=== PATIENT | female | born 1990 | race African-American/Black ===

== ENCOUNTER 2017-01-03 23:42 | Emergency (ER) | payer OTHER ==
[~2017-01-03] VITALS: Ht 167.6 cm; Wt 97.5 kg
[2017-01-03 23:58] VITALS: BP 119/74
--- NOTE | 2017-01-04 00:22 | ED THROAT/DENTAL COMPLAINT ---
History of Present Illness General Chief Complaint: Sore Throat, Dental Pain Stated Complaint: DENTAL PAIN Source: patient Exam Limitations: no limitations Vital Signs & Intake/Output Vital Signs & Intake/Output Vital Signs Date Time Temp Pulse Resp B/P Pulse O2 O2 Flow FiO2 Ox Delivery Rate 01/03 2358 98.0 84 18 119/74 97 Room Air ED Intake and Output 01/04 0000 01/03 1200 Intake Total Output Total Balance Patient 215 lb Weight Allergies Coded Allergies: NO KNOWN ALLERGIES (12/23/11) Reconcile Medications Tramadol HCl 50 MG TABLET 1 TAB PO BIDP PRN PAIN Triage Note: PT TO ED C/O "BAD TOOTH ACHE", PT STATES SHES BEEN TAKING IBUPROFEN/ADVIL X2 DAYS. PT WAS AT DENTIST AT BEGINNING OF WEEK, PT HAS HX OF ROOT CANAL AT SAME TOOTH AND "THERES NO CAP ON IT" Triage Nurses Notes Reviewed? yes : No Patient currently breastfeeds: Yes HPI: This patient is a 26-year-old female who presented to the emergency department today for evaluation of dental pain. The patient reported the pain has been going on for the last week intermittently. She reported that she saw her dentist on Friday, but was not having pain at that time. She has been taking ibuprofen with only minimal relief of her symptoms. She reported that the specific tooth that is bothering her recently had a root canal but reported, "there is no On it." She denied any fevers, chills, difficulty swallowing, sore throat, chest pain, or difficulty breathing. Past History Travel History Traveled to [place] past 21 day No Medical History Any Pertinent Medical History? see below for history Respiratory: asthma Surgical History Surgical History: non-contributory Psychosocial History What is your primary language Persian Tobacco Use: Never used Family History Hx Contributory? No Review of Systems Review of Systems Constitutional: Reports: no symptoms. EENTM: Reports: see HPI. Respiratory: Reports: no symptoms. Cardiovascular: Reports: no symptoms. GI: Reports: no symptoms. Musculoskeletal: Reports: no symptoms. Skin: Reports: no symptoms. Neurological/Psychological: Reports: no symptoms. All Other Systems: Reviewed and Negative Physical Exam Physical Exam Mouth/Throat: NO PHARYNGEAL INJECTION. nO ORAL PHARYNGEAL LESIONS OR EDEMA. nO MANDIBULAR OR MAXILLARY EDEMA. nO TRISMUS OR DROOLING. nO GINGIVAL ERYTHEMA OR HYPERPLASIA. tENDERNESS TO PALPATION OVER THE LEFT UPPER DENTITION Comments: Well-developed well-nourished person in no acute distress HEENT: Head normocephalic, moist mucous membranes Neck: Supple, no lymphadenopathy Back: Normal gait Respiratory: No respiratory distress. Speaking in full sentences Extremities: No edema, full range of motion Neuro: Alert and oriented x3 Psych: Mood affect normal, normal memory normal judgment. Skin: Warm and dry, no rash on exposed skin Core Measures ACS in differential dx? No Severe Sepsis Present: No Septic Shock Present: No Progress Differential Diagnosis: carious tooth, epiglottitis, Ludwigs angina, odontogenic abscess, angeles-tonsillar abscess, pharyngeal for. body, stomatitis/gingivitis, strep pharyngitis, tooth fracture Plan of Care: This patient is a 26-year-old female who presented to the emergency department today for evaluation of dental pain. History of prior root canal. No evidence of infection or abscess formation. Counseled this patient on the importance of following up with her dentist. She is stable for discharge home with symptomatic management. Departure Departure Disposition: HOME OR SELF CARE Condition: Stable Clinical Impression Primary Impression: Toothache Referrals: SHAHANA WELLS,SHAWN Singh (PCP/Family) Additional Instructions: Take medication as prescribed for pain. Please follow-up with your dentist. Return for any worsening symptoms or concerns. Departure Forms: Customer Survey General Discharge Information Prescriptions: Current Visit Scripts Tramadol HCl 1 TAB PO BIDP PRN PAIN #8 TAB
[2017-01-04] MEDS ORDERED: TRAMADOL HCL50 M1 PO (00:23)
== END 2017-01-04 00:29 ==
LOC: ERH 23:42
DX: K08.89 Other specified disorders of teeth and supporting structures (principal)

== ENCOUNTER 2018-02-01 10:42 | Emergency (ER) | payer OTHER ==
[~2018-02-01] VITALS: Ht 167.6 cm; Wt 97.5 kg
[~2018-02-01 10:42] MED LIST: TRAMADOL HCL50 M1 PO
--- NOTE | 2018-02-01 12:17 | ED HAND/WRIST INJURY COMPLAINT ---
History of Present Illness General Chief Complaint: Upper Extremity Injury Stated Complaint: S/P FALL YESTERDAY SHOULDER PAIN Source: patient Exam Limitations: no limitations Vital Signs & Intake/Output Vital Signs & Intake/Output Vital Signs Date Time Temp Pulse Resp B/P B/P Pulse O2 O2 Flow FiO2 Mean Ox Delivery Rate 02/01 1320 97.1 97 15 130/74 99 Room Air Room Air 02/01 1124 Room Air Room Air 02/01 1051 97.9 106 15 163/92 97 Room Air Room Air Allergies Coded Allergies: No Known Allergies (02/01/18) Reconcile Medications Hydrocodone/Acetaminophen ([place] 5-325 Tablet) 5 MG-325 MG TABLET 1-2 TAB PO Q4-6 PRN PRN PAIN Ibuprofen 800 MG TABLET 1 TAB PO TID PRN pain Tramadol HCl 50 MG TABLET 1 TAB PO BIDP PRN PAIN Triage Note: PT TO ED FOR L WRIST PAIN THAT RADIATES INTO L UPPER ARM S/P FELL WHILE ROLLER SKATING YESTERDAY. SOME SLIGHT SWELLING AND TENDERNESS TO L WRIST AREA. +CMS. MEDICATED WITH MOTRIN IN TRIAGE. Triage Nurses Notes Reviewed? yes Occurred: just prior to arrival Duration: day(s): (1), constant, continues in ED, getting worse Timing: single episode today Injury Environment: park Severity: moderate, severe Severity Numbers: 8 Pain/Injury Location: Left: Wrist. Context: fall Method of Injury: fall No Modifying Factors: none Associated Symptoms: swelling LMP (ages 10-50): unknown : No Patient currently breastfeeds: No HPI: 27-year-old female past medical history of asthma presents for evaluation of her fall. Patient states she was roller skating yesterday when she fell landing on her left wrist. There is no head strike or loss of consciousness she was able to get up without difficulty. She states that she has pain in the radial aspect of the wrist it is worse with movement. The pain radiates into her left shoulder the pain is worse with movement. No neck pain back pain chest pain or abdominal pain no numbness or tingling. She's not taking any medicine for this pain she rates as an 8 or 9 out of 10. (Milton Aranda) Past History Travel History Traveled to [place] past 21 day No Medical History Any Pertinent Medical History? see below for history Neurological: NONE EENT: NONE Cardiovascular: NONE Respiratory: asthma Gastrointestinal: NONE Hepatic: NONE Renal: NONE Musculoskeletal: NONE Psychiatric: NONE Endocrine: NONE Blood Disorders: NONE Cancer(s): NONE ANNEALER/Reproductive: NONE Surgical History Surgical History: non-contributory Psychosocial History What is your primary language [place] Tobacco Use: Quit >30 days ago ETOH Use: denies use Illicit Drug Use: denies illicit drug use Family History Hx Contributory? No (Milton Aranda) Review of Systems Review of Systems Constitutional: Reports: no symptoms. EENTM: Reports: no symptoms. Respiratory: Reports: no symptoms. Cardiovascular: Reports: no symptoms. GI: Reports: no symptoms. Genitourinary: Reports: no symptoms. Musculoskeletal: Reports: see HPI, joint pain, joint swelling, muscle pain, muscle stiffness. Skin: Reports: no symptoms. Neurological/Psychological: Reports: no symptoms. Hematologic/Endocrine: Reports: no symptoms. Immunologic/Allergic: Reports: no symptoms. All Other Systems: Reviewed and Negative (Milton Aranda) Physical Exam Physical Exam General Appearance: well developed/nourished, no apparent distress, alert, awake Head: atraumatic, normal appearance Eyes: Bilateral: normal appearance, EOMI. Ears, Nose, Throat: hearing grossly normal Neck: normal inspection, supple, full range of motion, no midline tenderness Cardiovascular/Respiratory: normal breath sounds, normal peripheral pulses, regular rate/rhythm, no respiratory distress Back: normal inspection, normal range of motion, no vertebral tenderness Shoulder Left: normal range of motion, normal inspection Shoulder Right: normal range of motion, normal inspection Elbow Left: normal range of motion, normal inspection Elbow Right: normal range of motion, normal inspection Forearm Left: normal inspection, limited range of motion Forearm Right: normal range of motion, normal inspection Wrist Left: swelling, tenderness, pain, soft tissue tenderness, limited range of motion, there is tenderness to palpation in the area of the radial wrist. There is tenderness in the snuffbox. There is mild soft tissue swelling on the radial aspect of the wrist. No gross deformity range of motion of the wrist is reduced due to pain. Wrist Right: normal range of motion, normal inspection Hand Left: normal inspection, limited range of motion, evidence of injury, swelling, tender, 1st finger, there is pain with range of motion of the thumb. Tenderness to palpation at the base of the thumb. Neurovascular supply is intact, cap Refill less than 2 seconds Hand Right: normal inspection, normal range of motion Neurologic/Tendon: normal sensation, normal motor functions, normal tendon functions, responds to pain, no evidence tendon injury, no pulse deficit Skin: intact, normal color, warm/dry Lymphatic: no anterior cervical joana (Milton Aranda) Progress Differential Diagnosis: abscess, cellulitis, contusion, dislocation, fracture, septic arthritis, sprain, tenosynovitis Plan of Care: Orders Procedure Date/time Status URINE 02/01 1056 Complete Laboratory Tests 02/01/18 1122: Urine Test NEGATIVE Patient seen and evaluated. She has tenderness and swelling to the radial aspect of the left wrist and snuffbox tenderness. X-rays were obtained which showed a nondisplaced transverse fracture of the distal radius. Neurovascular supply is intact. No other injuries. Full range motion of the elbow and shoulder no tenderness at the cervical spineor clavicle. Patient was placed into a left thumb spica splint. Neurovascular supply is intact follow-up with orthopedics. Rest ice elevation compression. Tylenol ibuprofen and [place] for pain discussed return precautions follow-up with Octavio Goff this week return with any concerns patient agrees. Diagnostic Imaging: Viewed by Me: Radiology Read. Discussed w/RAD: Radiology Read. Radiology Impression: PATIENT: TIKI FLETCHER PRESENT AGE: 27 PATIENT ACCOUNT NO: [id number] : 88 LOCATION: [facility] ORDERING PHYSICIAN: María POPE SERVICE DATE: 02/01/18-1116 EXAM TYPE: RAD - XRY-WRIST COMPLETE-LEFT EXAMINATION: XR WRIST, LEFT CLINICAL INFORMATION: Trauma COMPARISON: None TECHNIQUE: Four views of the left wrist. FINDINGS: The patient has incurred a nondisplaced transverse fracture of the metadiaphysis distal left radius. The ulna is intact. There is no apparent intra -articular extension. There is deep soft tissue swelling. No dislocation. IMPRESSION: Nondisplaced transverse fracture distal left radius. DICTATED BY: Joe Thakkar MD DATE/TIME DICTATED:02/01/181227 WET ROLLER: ANNABELLE DATE/TIME TRANSCRIBED:02/01/181227 CONFIDENTIAL, DO NOT COPY WITHOUT APPROPRIATE AUTHORIZATION. (Milton Aranda) Departure Departure Disposition: HOME OR SELF CARE Condition: Stable Clinical Impression Primary Impression: Left radial fracture Qualifiers: Encounter type: initial encounter Radius location: distal Fracture type: closed Fracture morphology: unspecified fracture morphology Qualified Code : S52.502A - Unspecified fracture of the lower end of left radius, initial encounter for closed fracture Referrals: Ed WELLS,Cullen Johnson MD,Karen Singh (PCP/Family) Additional Instructions: Rest, wear splint at all times apply ice for 15-20 minutes every couple hours. Use ibuprofen 800 mg every 8 hours with food as needed for pain. [place] can be use as needed for severe pain only this may cause drowsiness. Make a follow-up APPT with Cullen Ward MD orthopedic surgeon as soon as possible. Monitor symptoms closely return with any concerns. Departure Forms: Customer Survey General Discharge Information Prescriptions: Current Visit Scripts Hydrocodone/Acetaminophen ([place] 5-325 Tablet) 1-2 TAB PO Q4-6 PRN PRN PAIN #10 TAB Ibuprofen 1 TAB PO TID PRN pain #30 TAB (Milton Aranda) PA/LEVER TENDER Co-Sign Statement Statement: ED Attending supervision documentation- [] I saw and evaluated the patient. I have also reviewed all the pertinent lab results and diagnostic results. I agree with the findings and the plan of care as documented in the PA's/LEVER TENDER's documentation. [X] I have reviewed the ED Record and agree with the PA's/LEVER TENDER's documentation. [] Additions or exceptions (if any) to the PAs/LEVER TENDER's note and plan are summarized below: [] (Bryan WELLS,Evgeny Tucker)
--- NOTE | 2018-02-01 12:33 | RADIOLOGY REPORT ---
EXAMINATION: XR WRIST, LEFT CLINICAL INFORMATION: Trauma COMPARISON: None TECHNIQUE: Four views of the left wrist. FINDINGS: The patient has incurred a nondisplaced transverse fracture of the metadiaphysis distal left radius. The ulna is intact. There is no apparent intra-articular extension. There is deep soft tissue swelling. No dislocation. IMPRESSION: Nondisplaced transverse fracture distal left radius.
[2018-02-01] MEDS ORDERED: NORCO 5-325 TA1 EACH PO (12:53)
[2018-02-01] MEDS ORDERED: IBUPROFEN800 M1 PO (12:54)
[2018-02-01 13:20] VITALS: BP 130/74
== END 2018-02-01 13:21 ==
LOC: ERH 10:42
DX: S52.502A Unspecified fracture of the lower end of left radius, initial encounter for closed fracture (principal); V00.121A Fall from non-in-line roller-skates, initial encounter; Y92.9 Unspecified place or not applicable; Y93.9 Activity, unspecified
CPT/HCPCS: 73110-LT; 81025